=== PATIENT | male | born 1950 ===

== ENCOUNTER 2019-01-31 08:29 | Outpatient (CLI) | payer OTHER ==
[~2019-01-31] VITALS: Ht 152.4 cm; Wt 81.6 kg
== END 2019-01-31 08:45 | disposition home or self-care (01) ==
LOC: OFIC 805 08:29
DX: H93.12 Tinnitus, left ear (principal); H90.42 Sensorineural hearing loss, unilateral, left ear, with unrestricted hearing on the contralateral side